=== PATIENT | male | born 1960 | race Caucasian/White ===

== ENCOUNTER 2017-06-02 15:57 | Emergency (ER) | payer MEDICARE, MEDICAID ==
[~2017-06-02] VITALS: Ht 180.3 cm; Wt 135.2 kg
[~2017-06-02 15:57] MED LIST: ALBUAER3 IN; ASPI81CH43 PO; ATOR40TA52 PO; CALCTAB25 PO; CANA100T OR; CARI-316 PO; CLON1TAB3 PO; ENAL-3 PO; FENO145T20 OR; FENT75DI2 TD; GLYB5TAB8 PO; HYDR12.56 PO; HYDR2TAB29 PO; METF-372 PO; OMEP20CA74 OR; OXY5T PO; PREG150C PO; TEMA30CA PO
[2017-06-02 16:59] LABS: Basophils # (auto) 0.2 uL; Basophils % (auto) 1.6 % (0.0-2.0); CONDITION Y; Eosinophils # (auto) 0.1 uL; Eosinophils % (auto) 0.9 % (0.0-7.0); Hematocrit 44.3 % (41.0-53.0); Hemoglobin 14.7 g/dL (13.5-17.5); Lymphocytes # (auto) 1.8 uL; Lymphocytes % (auto) 16.8 % (10.0-50.0); Mean Corpuscular Hemoglobin 28.7 pg (28.0-32.0); Mean Corpuscular Hgb Conc. 33.2 g/dL (32.0-36.0); Mean Corpuscular Volume 86.4 fL (80.0-100.0); Monocytes # (auto) 0.5 uL; Monocytes % (auto) 4.4 % (0.0-12.0); Neutrophils # (auto) 8.3 uL; Neutrophils % (auto) 76.3 % (37.0-80.0); Platelet Count (auto) 465 10^3/uL (140-450); Red Cell Distribution Width 14.1 % (11.6-16.0); White Blood Cell 10.9 10^3/uL (4.4-10.8)
[2017-06-02 17:11] LABS: BUN/Creatinine Ratio 11.4; Potassium 3.7 mmol/L (3.5-5.1)
[2017-06-02 17:14] LABS: Bilirubin, Total 0.4 mg/dL (0.2-1.0); Total Protein 8.3 g/dL (6.4-8.2)
[2017-06-02 22:24] LABS: Urine Bilirubin Negative (Negative); Urine Blood Negative /uL (Negative); Urine Color Yellow (Yellow); Urine Ketone Negative (Negative); Urine Nitrite Negative (Negative); Urine RBC <1 /hpf (0 - 3); Urine Urobilinogen Normal (Negative); Urine pH 6.5 (5.0-8.0)
[2017-06-02 22:25] LABS: Urine Glucose 4+ mg/dL (Normal)
[2017-06-02] MEDS ORDERED: HYDROcodone-ACET 5/325MG TAB PO ONE (22:45)
[2017-06-02] MEDS ORDERED: SODIUM CHLORIDE 0.9% 1,000 ML IV ONE (22:45)
[2017-06-02] MEDS ORDERED: IOHEXOL 300 MG/ML 100ML BOTTLE IJ ONE (22:48)
[2017-06-03 00:18] LABS: INR 1.28 (0.9-1.15); Partial Thromboplastin Time 64.3 sec (22.64-33.71)
[2017-06-03 00:23] VITALS: BP 112/76
== END 2017-06-03 01:07 | disposition home or self-care (01) ==
LOC: ER 16:00
DX: R53.1 Weakness (principal); R35.1 Nocturia; I10 Essential (primary) hypertension; E11.9 Type 2 diabetes mellitus without complications; E78.5 Hyperlipidemia, unspecified; F12.10 Cannabis abuse, uncomplicated; Z79.82 Long term (current) use of aspirin; Z79.899 Other long term (current) drug therapy
CPT/HCPCS: 36415; 71010; 74177; 80053; 81001; 84484; 85025; 85610; 85730; 93005; 96360; 99285; J7030; Q9967